=== PATIENT | female | born 1965 | race Caucasian/White ===

== ENCOUNTER → 2021-08-31 09:08 | Outpatient (CLI) | payer OTHER, SELFPAY ==
[2021-08-31 11:15] LABS: Influenza A QL RT-PCR Negative (Negative); Influenza B QL RT-PCR Negative (Negative); SARS-CoV-2 RNA PCR Negative
== END ==
PROVIDERS: PCP Family Medicine; Visit Provider Family Medicine
DX: R50.9 Fever, unspecified (principal); Z20.822 Contact with and (suspected) exposure to COVID-19
CPT/HCPCS: 87502; C9803; U0003; U0005

== ENCOUNTER 2022-01-04 00:43 | Day surgery (SDC) | payer OTHER, SELFPAY ==
[2021-12-23 13:17] VITALS: BMI 51.0
[2022-01-04 08:12] VITALS: BP 146/94; PULSE 105; RESP 20; TEMP 36.7; O2SAT 99; BMI 51.7
[2022-01-04] MEDS: LACTATED RINGERS 1,000 ML 150 ML IV CONT (08:20)
--- NOTE | 2022-01-04 08:32 | P.HP_ITS ---
H&P: HPI History of Present Illness Date/Time: 01/04/22 08:32 Chief Complaint: History of colon polyps Narrative: this is a 56-year-old white female patient presents for screening colonoscopy. She has a history of a tubular adenomatous colon polyp removed from the colon 2008. Patient presents today for screening colonoscopy. She reports that her current weight appetite and bowel movements are normal. She denies abdominal pain. Patient has had no bleeding. She presents today for neoplasia screening. Review of Systems Review of Systems: Review of systems is noncontributory. [facility] Past Medical History Medical History (Updated 01/04/22 @ 08:33 by Geovani Leggett MD) Anxiety Osteoporosis Prediabetes Family History Family History Father Hypertension Family history of type 2 diabetes mellitus Mother Cerebrovascular accident Family history of malignant neoplasm of gastrointestinal tract Sibling Family history of chronic obstructive pulmonary disease Social History Social History Second hand tobacco smoke exposure: No Alcohol intake: never Living arrangements: with family Gender identity (if verbalized by the patient): Female Meds Home Medications and Allergies Home Medications Medication Instructions Recorded Confirmed Type paroxetine HCl 10 mg tablet See Rx Instructions .Route 08/25/21 12/23/21 Rx .COMPLEX #90 tabs sodium sul 1.479 gram-potas ch See Rx Instructions PO PER PKG DIR 11/10/21 12/23/21 Rx 0.188 gram-magnes sul 0.225 gram #24 tabs tablet (Sutab) Allergies Allergy/AdvReac Type Severity Reaction Status Date / Time Penicillins Allergy Unknown Unknown Verified 01/04/22 08:08 Vital Signs Vital Signs - 24 hr 01/04/22 08:12 Temperature 98.1 F Pulse Rate 105 H Respiratory Rate 20 Blood Pressure 146/94 H Pulse Oximetry 99 Oxygen Delivery Room Air Exam Narrative: Physical exam reveals patient to be alert. Vital signs stable. HEENT exam is unremarkable. Patient is anicteric. Lungs are clear to auscultation and percussion. Heart is without murmur or extra sounds. Abdominal exam bowel sounds are present soft nontender with no organomegaly. Digital external rectal exam is normal. Assessment and Plan Assessment and plan (1) History of colon polyps: Code(s): Z86.010 - Personal history of colonic polyps Status: Acute Assessment and Plan: Patient has a history of adenomatous colon polyp. Plan is for surveillance colonoscopy now further recommendations will be given after endoscopy.
--- NOTE | 2022-01-04 08:49 | P.PNAN_ITS ---
Anes - Initial Pre Proc Eval Procedure: Operation Date: 01/04/22 09:00 Proposed Procedures p Screening Colonoscopy - Geovani Leggett MD Date/Time: 01/04/22 08:49 Surgeon: Geovani Leggett MD Pre Op Diagnosis: hx of colon polyps Patient Data Age: 56 Gender: F Height: 1.65 m Weight: 141.2 kg Last Vital Signs Temp 98.1 F 01/04/22 08:12 Pulse 105 H 01/04/22 08:12 Resp 20 01/04/22 08:12 BP 146/94 H 01/04/22 08:12 Pulse Ox 99 01/04/22 08:12 O2 Del Method Room Air 01/04/22 08:12 Allergies Allergy/AdvReac Type Severity Reaction Status Date / Time Penicillins Allergy Unknown Unknown Verified 01/04/22 08:08 Home Medications Medication Instructions Recorded Confirmed Type paroxetine HCl 10 mg tablet See Rx Instructions .Route 08/25/21 12/23/21 Rx .COMPLEX #90 tabs sodium sul 1.479 gram-potas ch See Rx Instructions PO PER PKG DIR 11/10/21 12/23/21 Rx 0.188 gram-magnes sul 0.225 gram #24 tabs tablet (Sutab) Patient hx anesthesia problems: none Family hx anesthesia problems: none Results Review: All pre-operative results and documents have been reviewed as part of the pre- operative evaluation. [facility] Past Medical History Medical History (Updated 01/04/22 @ 08:33 by Geovani Leggett MD) Anxiety Osteoporosis Prediabetes Family History Family History Father Hypertension Family history of type 2 diabetes mellitus Mother Cerebrovascular accident Family history of malignant neoplasm of gastrointestinal tract Sibling Family history of chronic obstructive pulmonary disease Social History Social History Second hand tobacco smoke exposure: No Alcohol intake: never Living arrangements: with family Gender identity (if verbalized by the patient): Female Anes - Eval Final PreProcedure Day of Procedure 01/04/22 08:49 Patient weight: super morbidly obese Heart: regular rate and rhythm Lungs: clear to auscultation Airway: Mallampati scale class III Neurological: alert and oriented Last oral intake: >/= 8 hours ASA classification: III Emergent: no Anesthetic plan: proceed Anesthesia type and monitoring: general GIVS and standard monitoring Results Review: All pre-operative results and documents have been reviewed as part of the pre- operative evaluation. Informed Consent: The patient's anesthetic plan and its attendant risks and benefits were discussed with the patient/family/POA. Questions were solicited and answers provided to the satisfaction of the patient/family/POA.
[2022-01-04 09:38] VITALS: BP 141/79; PULSE 83; RESP 16; O2SAT 99
[2022-01-04 09:48] VITALS: BP 129/75; PULSE 76; RESP 17; O2SAT 99
[2022-01-04 09:58] VITALS: BP 132/83; PULSE 71; RESP 14; O2SAT 97
== END 2022-01-04 10:10 | disposition home or self-care (01) ==
PROVIDERS: PCP Family Medicine; Visit Provider Internal Medicine Gastroenterology
PROC: 0DJD8ZZ Inspection of Lower Intestinal Tract, Via Natural or Artificial Opening Endoscopic (ICD-10-PCS; CPT 45378; principal; 2022-01-04 09:00)
DX: Z12.11 Encounter for screening for malignant neoplasm of colon (principal); Z86.010 Personal history of colon polyps; K64.8 Other hemorrhoids; F41.9 Anxiety disorder, unspecified; M81.0 Age-related osteoporosis without current pathological fracture; R73.03 Prediabetes; E66.01 Morbid (severe) obesity due to excess calories; Z68.43 Body mass index [BMI] 50.0-59.9, adult
CPT/HCPCS: 45378; J2704; J7120

== ENCOUNTER 2022-02-19 18:45 | Emergency (ER) | payer OTHER, SELFPAY ==
[2022-02-19 18:55] VITALS: BP 169/100; PULSE 74; RESP 16; TEMP 37.3; O2SAT 98
--- NOTE | 2022-02-19 19:05 | ED.LOWEXIN ---
HPI - Extremity Injury (Lower) General Chief Complaint: Extremity Injury, Lower Stated Complaint: L KNEE PAIN Time Seen by Provider: 02/19/22 18:55 Source: patient Mode of arrival: ambulatory Limitations: no limitations History of Present Illness HPI Narrative: 56-year-old female presented for complaint of left knee pain for about 3 weeks. She denies injury. Pain is worse after walking or doing stairs, rates a 7 out of 10. She has taken Aleve occasionally but states she does not like to take medication. She denies numbness, tingling, weakness of the extremity. Denies redness, swelling, or bruising to the site. Related Data Allergies Allergy/AdvReac Type Severity Reaction Status Date / Time Penicillins Allergy Unknown Unknown Verified 01/04/22 08:08 Review of Systems Review of Systems: CONSTITUTIONAL: Denies body aches, fever, chills CARDIOVASCULAR: Denies chest pain, palpitations, or edema. RESPIRATORY: Denies cough or dyspnea. SKIN: Denies rash, itching, or wounds. MUSCULOSKELETAL: reports left knee pain NEUROLOGIC: Denies headache, numbness, tingling, or weakness. All systems reviewed & are unremarkable except as noted in HPI and below PMFSH Past Medical History Medical History Anxiety Osteoporosis Prediabetes Family History Family History Father Hypertension Family history of type 2 diabetes mellitus Mother Cerebrovascular accident Family history of malignant neoplasm of gastrointestinal tract Sibling Family history of chronic obstructive pulmonary disease Social History Social History Second hand tobacco smoke exposure: No Alcohol intake: never Gender identity (if verbalized by the patient): Female Comments At time of signature, I have reviewed and agree with nursing past medical, surgical, social and family history unless otherwise noted. Please see nursing chart for further information. There is no relevant family history pertinent to the presenting complaint Exam Narrative: GENERAL: Well-appearing. obese CHEST: No respiratory distress. HEART: Regular rate and rhythm. Normal and equal peripheral pulses. EXTREMITIES: Left medial knee distal to patella mild tenderness with palpation. normal strength and sensation, normal range of motion. No swelling or ecchymosis. No open wounds or obvious deformity; pulse palpable and equal bilaterally, skin warm, dry, pink. Capillary refill less than 3 seconds. Gait steady. SKIN: Warm, dry, no rash. NEURO: Alert and oriented x3. PSYCH: Normal mood and affect Course Course Emergency Course: Patient is aware of diagnosis, understands and agrees to treatment plan. Anticipatory guidance given. Patient agrees to follow-up as directed and is aware of reasons to seek care at the emergency department. Portions of this record may have been created with voice recognition software Level of Care: Express Care Visit Vital Signs Vital signs: Vital Signs Temperature 99.1 F 02/19/22 18:55 Pulse Rate 74 02/19/22 18:55 Respiratory Rate 16 02/19/22 18:55 Blood Pressure 169/100 H 02/19/22 18:55 Pulse Oximetry 98 02/19/22 18:55 Temperature 99.1 F 02/19/22 18:55 Pulse Rate 74 02/19/22 18:55 Respiratory Rate 16 02/19/22 18:55 Blood Pressure 169/100 H 02/19/22 18:55 Pulse Oximetry 98 02/19/22 18:55 Reviewed MDM - Extremity Injury (Lower) MDM Narrative Medical decision making narrative: Pt with left medial knee pain for about 3 weeks and no injury. Imaging deferred at this time, states she would like to try supportive measures and f/u with pcp as needed. Says she will order a knee brace/support. Advised RICE therapy and signs/symptoms to go to the ER. Pt is appropriate for outpt treatment and f/u. Differential Diagnosis Differential diagnosis: Likely acute
== END 2022-02-19 19:19 | disposition home or self-care (01) ==
PROVIDERS: Emergency Provider Nurse Practitioner Family; PCP Family Medicine
DX: M25.562 Pain in left knee (principal); R73.03 Prediabetes
CPT/HCPCS: 99213; G0463

== ENCOUNTER 2022-06-24 08:23 | Outpatient (CLI) | payer OTHER, SELFPAY ==
--- NOTE | 2022-07-05 15:11 | WPDHOMESLEEP ---
Sleep Study - Home Unattended Date of Study: 06/24/22 Ordering Provider: Johnson Thornton DO Interpreting Provider: Madiha Zaidi DO Home Sleep Study Type: Watch PAT Height: 1.65 m Weight: 149.232 kg Body Mass Index: 54.7 Neck Circumference (inches): 17 [place]: 10 Reason for Sleep Study Snoring, daytime hypersomnia Sleep History The patient is a 56-year-old female with anxiety, osteoporosis, prediabetes, hypertension, glaucoma and premature ovarian failure that had a sleep study ordered by her primary care for evaluation of sleep apnea. The patient occasionally awakens from sleep short of breath. She denies awakening at night with heartburn, belching or cough. She constantly snores and is frequently loud enough that others complain. She occasionally has trouble sleeping when she has a cold. She denies waking up gasping for air throughout the night. She occasionally has breathing problems at night observed by herself or others. She rarely sweats excessively at night. She denies having heart palpitations or irregular heartbeats during the night. She occasionally falls asleep during the day but never while driving. She denies sleep paralysis and cataplexy. the patient occasionally has trouble at school or work due to sleepiness. She rarely experiences vivid dreamlike scenes upon awakening or falling asleep. She rarely feels afraid of going to sleep. She rarely has nightmares and rarely remembers her dreams. She occasionally has thoughts racing through her mind. She occasionally feels sad or depressed. She frequently has anxiety. She rarely has muscular tension. She occasionally notices parts of her body jerk. She occasionally kicks during the night. She rarely has crawling and aching feelings in her legs and rarely experiences leg pain during the night. She denies grinding her teeth during sleep and denies awakening with morning jaw pain. She is occasionally bothered by pain during the day but never awakened by pain during the night. He occasionally wakes up feeling stiff in the morning. She occasionally wakes up with sore or achy muscles. She rarely wakes up with pain in the neck, spine or other joints. She goes to bed between 10:00 p.m. to midnight on weekdays and between 11:00 p.m. to 1:00 a.m. on the weekends. She is able to fall asleep within 5 minutes. She wakes up once throughout the night to urinate. She is able fall back asleep within 5 minutes. She wakes up at 7:30 a.m. on weekdays and does not have a set wake-up time on the weekends. She typically sleeps 6-8 hours per night. She will stay in bed no longer than 5 minutes after waking up in the morning. She currently lives with her . She will consume caffeinated beverages within 2 hours of bedtime. She does not engage in physical exercise before bedtime. He will occasionally read before falling asleep. She will take naps in the afternoon or the evening and they are occasionally refreshing. She will consume caffeinated beverages throughout the day. She denies tobacco, alcohol and recreational drug use. [facility] Past Medical History Medical History (Updated 07/05/22 @ 15:19 by Madiha Zaidi DO) Anxiety Osteoporosis Prediabetes Family History Family History Father Hypertension Family history of type 2 diabetes mellitus Mother Cerebrovascular accident Family history of malignant neoplasm of gastrointestinal tract Sibling Family history of chronic obstructive pulmonary disease Social History Social History Smoking status: Never smoker Second hand tobacco smoke exposure: No Alcohol intake: never Substance use: never Substance use type: does not use Lack of Transportation: No Lack of Food: Never True Current Housing: I Have Housing Concerned About Future Housing: No Difficulty Paying Gas/Electric Jose Alberto
[2022-07-05 15:21] VITALS: BMI 54.7
--- NOTE | 2022-08-31 12:56 | SLEEP ---
new calls [phone]
== END 2022-06-25 10:55 | disposition home or self-care (01) ==
LOC: ANHCSM 08:25
PROVIDERS: PCP Family Medicine; Visit Provider Family Medicine
DX: G47.10 Hypersomnia, unspecified (principal); R06.83 Snoring; F41.9 Anxiety disorder, unspecified
CPT/HCPCS: 95800

== ENCOUNTER 2022-08-12 08:45 | Outpatient (CLI) | payer OTHER, SELFPAY ==
--- NOTE | 2022-09-06 02:32 | WPDSLEEPSTUD ---
Sleep Study Date of Study: 08/12/22 Ordering Provider: Johnson Thornton DO Interpreting Physician: Madiha Zaidi DO Sleep Study Type: Split Polysomnogram Height: 1.65 m Weight: 148.778 kg Body Mass Index: 54.7 Neck Circumference (inches): 17 [place]: 10 Reason for Sleep Study The patient had a WatchPAT on 06/24/2022 that showed an AHI of 3.4. It was recommended that she have a split study. Sleep History The patient is a 56-year-old female with anxiety, osteoporosis, prediabetes, hypertension, glaucoma and premature ovarian failure that had a sleep study ordered by her primary care for evaluation of sleep apnea.? The patient occasionally awakens from sleep short of breath.? She denies awakening at night with heartburn, belching or cough.? She constantly snores and is frequently loud enough that others complain.? She occasionally has trouble sleeping when she has a cold.? She denies waking up gasping for air throughout the night.? She occasionally has breathing problems at night observed by herself or others.? She rarely sweats excessively at night.? She denies having heart palpitations or irregular heartbeats during the night.? She occasionally falls asleep during the day but never while driving.? She denies sleep paralysis and cataplexy. the patient occasionally has trouble at school or work due to sleepiness.? She rarely experiences vivid dreamlike scenes upon awakening or falling asleep.? She rarely feels afraid of going to sleep.? She rarely has nightmares and rarely remembers her dreams.? She occasionally has thoughts racing through her mind.? She occasionally feels sad or depressed.? She frequently has anxiety.? She rarely has muscular tension.? She occasionally notices parts of her body jerk.? She occasionally kicks during the night.? She rarely has crawling and aching feelings in her legs and rarely experiences leg pain during the night.? She denies grinding her teeth during sleep and denies awakening with morning jaw pain.? She is occasionally bothered by pain during the day but never awakened by pain during the night.? He occasionally wakes up feeling stiff in the morning.? She occasionally wakes up with sore or achy muscles.? She rarely wakes up with pain in the neck, spine or other joints.? She goes to bed between 10:00 p.m. to midnight on weekdays and between 11:00 p.m. to 1:00 a.m. on the weekends.? She is able to fall asleep within 5 minutes.? She wakes up once throughout the night to urinate.? She is able fall back asleep within 5 minutes.? She wakes up at 7:30 a.m. on weekdays and does not have a set wake-up time on the weekends.? She typically sleeps 6-8 hours per night.? She will stay in bed no longer than 5 minutes after waking up in the morning.? She currently lives with her .? She will consume caffeinated beverages within 2 hours of bedtime.? She does not engage in physical exercise before bedtime.? He will occasionally read before falling asleep.? She will take naps in the afternoon or the evening and they are occasionally refreshing. She will consume caffeinated beverages throughout the day.? She denies tobacco, alcohol and recreational drug use. [facility] Past Medical History Medical History (Updated 09/06/22 @ 04:37 by Madiha Zaidi DO) Anxiety Osteoporosis Prediabetes Family History Family History Father Hypertension Family history of type 2 diabetes mellitus Mother Cerebrovascular accident Family history of malignant neoplasm of gastrointestinal tract Sibling Family history of chronic obstructive pulmonary disease Social History Social History Smoking status: Never smoker Second hand tobacco smoke exposure: No Alcohol intake: never Substance use: never Substance use type: does not use Lack of Transportation: No Lack of Food: Never True Current Housing: I Have Housing
[2022-09-06 04:18] VITALS: BMI 54.7
== END 2022-08-13 06:41 | disposition home or self-care (01) ==
LOC: ANHCSM 08:46
PROVIDERS: PCP Family Medicine; Visit Provider Family Medicine
DX: G47.30 Sleep apnea, unspecified (principal); G47.33 Obstructive sleep apnea (adult) (pediatric)
CPT/HCPCS: 95811

== ENCOUNTER 2024-12-07 10:48 | Outpatient (CLI) | payer OTHER, SELFPAY ==
[2024-12-07 18:25] LABS: Kit Draw Collected
== END 2024-12-07 10:49 | disposition home or self-care (01) ==
LOC: ANHGOSHLAB 10:49
PROVIDERS: PCP Family Medicine; Visit Provider Family Medicine
DX: E66.01 Morbid (severe) obesity due to excess calories (principal); E78.49 Other hyperlipidemia; I10 Essential (primary) hypertension; R73.03 Prediabetes; Z79.899 Other long term (current) drug therapy
CPT/HCPCS: 36415

== ENCOUNTER 2025-05-10 09:23 | Outpatient (CLI) | payer OTHER, SELFPAY | END 2025-05-10 09:24 | disposition home or self-care (01) | LOC: ANHGOSHLAB 09:24 | PROVIDERS: PCP Family Medicine; Visit Provider Family Medicine | DX: E66.01 Morbid (severe) obesity due to excess calories (principal); E78.49 Other hyperlipidemia; E78.5 Hyperlipidemia, unspecified; I10 Essential (primary) hypertension; R73.03 Prediabetes; Z79.899 Other long term (current) drug therapy | CPT/HCPCS: 36415 ==

== ENCOUNTER 2025-05-10 09:55 | Outpatient (CLI) | payer OTHER, SELFPAY ==
--- NOTE | ~2025-05-10 | XR_ITS ---
EXAMINATION: [id number] DATE: 05/10/2025 10:37 INDICATION: Localized swelling, mass or lump at the left foot TECHNIQUE: Standing dorsoplantar, two oblique and lateral views of the left foot were obtained. COMPARISON: None. FINDINGS: Mild pes planus. Alignment is otherwise normal. No fracture. Mild osteoarthritis at the first metatarsophalangeal and a few of the tarsal metatarsal and interphalangeal joints. Small plantar calcaneal spur. Mild soft tissue swelling at the lateral midfoot. IMPRESSION: 1. 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 No acute osseous abnormality. Reviewed, dictated and finalized at location A. [facility] [employer]
== END 2025-05-10 09:56 | disposition home or self-care (01) ==
PROVIDERS: PCP Family Medicine; Visit Provider Family Medicine
DX: M15.9 Polyosteoarthritis, unspecified (principal); R22.42 Localized swelling, mass and lump, left lower limb
CPT/HCPCS: 73630